=== PATIENT | male | born 1940 | race Caucasian/White ===

== ENCOUNTER 2018-05-07 08:20 | Emergency (ER) | payer MEDICARE, BC ==
[~2018-05-07] VITALS: Ht 180.3 cm; Wt 65.8 kg
[~2018-05-07 08:20] MED LIST: BACTRIM DS1 EA GT; TRAMADOL HCL50 M1 PO; Z.0.ACCUPRIL20 MG; Z.0.FLOMAX0.4 MG PO; Z.0.NORVASC2.5 MG; [UNRECOGNIZED DRUG - CODE]
[2018-05-07] MEDS ORDERED: TRIAMTERENE-HCTZ1 EA PO (08:35)
[2018-05-07] MEDS ORDERED: TURMERIC1 GM PO (08:35)
[2018-05-07] MEDS ORDERED: LISINOPRIL10 MG PO (08:35)
[2018-05-07] MEDS ORDERED: FAMOTIDINE 20 MG TAB PO ONE (09:30)
[2018-05-07] MEDS ORDERED: DIPHENHYDRAMINE HCL 25 MG CAP PO ONE (09:30)
[2018-05-07] MEDS ORDERED: PREDNISONE 20 MG TAB PO ONE (09:30)
[2018-05-07 11:34] VITALS: BP 123/78
== END 2018-05-07 11:45 | disposition home or self-care (01) ==
LOC: ER 08:20
DX: T78.3XXA Angioneurotic edema, initial encounter (principal)
CPT/HCPCS: 99284

== ENCOUNTER 2018-07-15 18:57 | Emergency (ER) | payer MEDICARE, BC ==
[~2018-07-15] VITALS: Ht 180.3 cm; Wt 65.8 kg
[~2018-07-15 18:57] MED LIST changes: +LISINOPRIL10 MG PO; +TRIAMTERENE-HCTZ1 EA PO; +TURMERIC1 GM PO
[2018-07-15] MEDS ORDERED: PENICILLIN G BENZATHINE LA 1.2 MU TBX IM STA (20:33)
--- NOTE | 2018-07-15 20:50 | Diagnostic Imaging Report ---
EXAMINATION: CHEST 2 VIEWS INDICATION: \S\sore throat COMPARISON: None FINDINGS: PA and lateral views TUBES and LINES: None. LUNGS: Lungs are well inflated. Lungs are clear. There is no evidence of pneumonia or pulmonary edema. PLEURA: No pleural effusion or pneumothorax. HEART AND MEDIASTINUM: The cardiomediastinal silhouette is unremarkable. There are atherosclerotic calcifications within the aorta. BONES AND SOFT TISSUES: No acute osseous lesion. Soft tissues are unremarkable. UPPER ABDOMEN: No free air under the diaphragm. IMPRESSION: No acute thoracic abnormality. Signed by: Dr. Romario Solano M.D. on 07/15/2018 8:47 PM
--- NOTE | 2018-07-15 20:51 | Diagnostic Imaging Report ---
NECK SOFT TISSUE - 2 views HISTORY: Pain. Sore throat COMPARISON: None available. FINDINGS: Bones: No acute displaced fracture. Osseous alignment is within normal limits. Joints: Severe degenerative changes in the cervical spine. Soft tissues: The soft tissues appear unremarkable. Normal epiglottis. Normal prevertebral soft tissue. Normal adenoids. IMPRESSION: 1. Normal soft tissue neck. 2. 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 Signed by: Dr. Romario Solano M.D. on 07/15/2018 8:47 PM
== END 2018-07-15 21:41 | disposition home or self-care (01) ==
LOC: ER 18:57
DX: J02.0 Streptococcal pharyngitis (principal); I10 Essential (primary) hypertension; G89.29 Other chronic pain
CPT/HCPCS: 70360; 71046; 83518; 99283; J0561

== ENCOUNTER 2018-07-27 23:57 | Inpatient (IN) | payer MEDICARE, BC ==
[~2018-07-27] VITALS: Ht 172.7 cm; Wt 66.3 kg
[2018-07-28 01:17] LABS: BASOPHILS # (AUTO) 0.2 (0.0-0.1); BASOPHILS % 0.7 % (0.0-1.0); EOSINOPHILS # (AUTO) 0.2 (0.0-0.4); EOSINOPHILS % 0.9 % (0.0-6.0); HEMATOCRIT 34.5 % (38.2-49.6); HEMOGLOBIN 11.7 g/dL (14.0-18.0); LYMPHOCYTES # (AUTO) 2.5 (1.0-3.2); LYMPHOCYTES % 11.7 % (18.0-39.1); MEAN CORPUSCULAR HEMOGLOBIN 33.9 pg (28-32); MEAN CORPUSCULAR HGB CONC 33.9 g/dL (31-35); MONOCYTES # (AUTO) 1.6 (0.2-0.8); MONOCYTES % 7.4 % (4.4-11.3); NEUTROPHILS # (AUTO) 16.3 (2.1-6.9); NEUTROPHILS % 76.4 % (38.7-80.0); PLATELET COUNT 261 x10e3/uL (140-360); RED BLOOD COUNT 3.45 x10e6/uL (4.3-5.7); RED CELL DISTRIBUTION WIDTH 13.1 % (11.7-14.4)
[2018-07-28 01:18] LABS: INR 0.91; PROTHROMBIN TIME 13.1 seconds (11.9-14.5)
[2018-07-28 01:19] LABS: PARTIAL THROMBOPLASTIN TIME 25.3 seconds (23.8-35.5)
[2018-07-28 01:29] LABS: ALANINE AMINOTRANSFERASE 16 IU/L (0-55); ALBUMIN 3.4 g/dL (3.5-5.0); ALBUMIN/GLOBULIN RATIO 1.4 (0.8-2.0); ALKALINE PHOSPHATASE 50 IU/L (40-150); ANION GAP 16.7 mmol/L (8-16); BLOOD UREA NITROGEN 65 mg/dL (7-26); BUN/CREATININE RATIO 59 (6-25); CALCIUM 9.5 mg/dL (8.4-10.2); CARBON DIOXIDE 24 mmol/L (22-29); CHLORIDE 106 mmol/L (98-107); CREATINE KINASE 30 IU/L (30-200); CREATININE, SERUM 1.11 mg/dL (0.72-1.25); EST GLOMERULAR FILTRATION RATE > 60 ML/MIN (60-); GLUCOSE 104 mg/dL (74-118); LIPASE 36 U/L (8-78); POTASSIUM 3.7 mmol/L (3.5-5.1); SODIUM 143 mmol/L (136-145)
[2018-07-28] MEDS ORDERED: SODIUM CHLORIDE 0.9% 1000ML 1,000 ML IV STA (01:35)
[2018-07-28] MEDS ORDERED: PANTOPRAZOLE 40 MG 10ML VIAL IV STA ×2 (01:35→01:49)
[2018-07-28 01:41] LABS: CLARITY,URINE CLEAR (CLEAR); COLOR,URINE YELLOW (YELLOW)
[2018-07-28 01:42] LABS: BILIRUBIN,URINE NEGATIVE (NEGATIVE); KETONES,URINE NEGATIVE (NEGATIVE); LEUKOCYTE ESTERASE ,URINE NEGATIVE (NEGATIVE); NITRITE,URINE NEGATIVE (NEGATIVE); PROTEIN,URINE DIPSTICK NEGATIVE (NEGATIVE); URINE UROBILINOGEN 0.2 mg/dL (0.2 - 1)
[2018-07-28] MEDS ORDERED: PANTOPRAZOLE 40 MG 10ML VIAL ONE (01:49)
[2018-07-28 01:51] LABS: BACTERIA,URINE MODERATE /HPF; EPITHELIAL CELLS,URINE RARE /LPF; RBC,URINE 0-5 /HPF (0-5)
[2018-07-28] MEDS ORDERED: DIATRIZOATE MEGL/DIATRIZOA SOD 30 ML BTL PO ONE (02:02)
[2018-07-28] MEDS ORDERED: PIPER-TAZ 3.375 GM 50 ML ONE (03:10)
[2018-07-28] MEDS ORDERED: SODIUM CHLORIDE 0.9% 50ML 50 ML ONE (03:58)
[2018-07-28] MEDS ORDERED: IOPAMIDOL 370 MG/ML 200 ML INFUS..BTL INJ ONE (03:59)
[2018-07-28] MEDS ORDERED: PIPER-TAZ 3.375 GM 50 ML IV STA (04:00)
--- NOTE | 2018-07-28 04:07 | Diagnostic Imaging Report ---
EXAM: CT Abdomen and Pelvis WITH contrast INDICATION: Abdominal pain COMPARISON: None. TECHNIQUE: Abdomen and pelvis were scanned utilizing a multidetector helical scanner from the lung base to the pubic symphysis after administration of IV contrast. Coronal and sagittal reformations were obtained. Routine protocol was performed. Scan was performed when during portal venous phase. IV CONTRAST: 100 mL of Isovue-370 ORAL CONTRAST: Water RADIATION DOSE: Total DLP: 257.63 mGy*cm Estimated effective dose: (DLP x 0.015 x size factor) mSv COMPLICATIONS: None FINDINGS: LINES and TUBES: None. LOWER THORAX: Unremarkable HEPATOBILIARY: No focal hepatic lesions. No biliary ductal dilation. GALLBLADDER: No radio-opaque stones or sludge. No wall thickening. SPLEEN: No splenomegaly. PANCREAS: No focal masses or ductal dilatation. ADRENALS: No adrenal nodules KIDNEYS/URETERS: Kidneys enhance symmetrically. No hydronephrosis. 1.4 cm stone in the inferior pole of the right kidney. 7 mm stone in the interpolar region of the left kidney. No stones. GI TRACT: No abnormal distention, wall thickening, or evidence of bowel obstruction. There are diverticula within the colon without evidence of diverticulitis. Appendix is normal. PELVIC ORGANS/BLADDER: Unremarkable. LYMPH NODES: No lymphadenopathy. VESSELS: Unremarkable. PERITONEUM / RETROPERITONEUM: No free air or fluid. BONES: Unremarkable. SOFT TISSUES: Unremarkable. IMPRESSION: 1. Bilateral nephrolithiasis. 2. Diverticulosis of the sigmoid colon without diverticulitis. Signed by: Dr. Micah Celeste M.D. on 07/28/2018 3:55 AM
[2018-07-28] MEDS ORDERED: ONDANSETRON HCL INJ 2 MG/ML VIAL IV PRN (04:15)
[2018-07-28] MEDS ORDERED: MORPHINE SULFATE 2 MG/ML SYR IV PRN (04:15)
--- NOTE | 2018-07-28 04:34 | Diagnostic Imaging Report ---
EXAMINATION: CHEST SINGLE (PORTABLE) INDICATION: Cold sweat, shortness of breath COMPARISON: 07/15/2018 FINDINGS: TUBES and LINES: None. LUNGS: Lungs are well inflated. Lungs are clear. There is no evidence of pneumonia or pulmonary edema. PLEURA: No pleural effusion or pneumothorax. HEART AND MEDIASTINUM: The cardiomediastinal silhouette is unremarkable. The aorta is ectatic with atherosclerotic calcifications. BONES AND SOFT TISSUES: No acute osseous lesion. Soft tissues are unremarkable. UPPER ABDOMEN: No free air under the diaphragm. IMPRESSION: No acute thoracic abnormality. Signed by: Dr. Micah Celeste M.D. on 07/28/2018 4:30 AM
[2018-07-28] MEDS ORDERED: AMLODIPINE BESYL5 MG PO (04:49)
[2018-07-28] MEDS: SODIUM CHLORIDE 0.9% 1000ML 1,000 ML IV SCH ×2 (05:37→12:23)
[2018-07-28 07:58] LABS: BASOPHILS # (AUTO) 0.1 (0.0-0.1); BASOPHILS % 0.4 % (0.0-1.0); EOSINOPHILS # (AUTO) 0.2 (0.0-0.4); EOSINOPHILS % 1.2 % (0.0-6.0); HEMATOCRIT 28.6 % (38.2-49.6); HEMOGLOBIN 9.8 g/dL (14.0-18.0); LYMPHOCYTES # (AUTO) 2.5 (1.0-3.2); LYMPHOCYTES % 18.2 % (18.0-39.1); MEAN CORPUSCULAR HEMOGLOBIN 34.3 pg (28-32); MEAN CORPUSCULAR HGB CONC 34.3 g/dL (31-35); MONOCYTES # (AUTO) 1.2 (0.2-0.8); MONOCYTES % 8.6 % (4.4-11.3); NEUTROPHILS # (AUTO) 9.8 (2.1-6.9); NEUTROPHILS % 70.4 % (38.7-80.0); PLATELET COUNT 230 x10e3/uL (140-360); RED BLOOD COUNT 2.86 x10e6/uL (4.3-5.7)
[2018-07-28] MEDS: PANTOPRAZOLE 40 MG 10ML VIAL IV SCH ×2 (09:06→21:31)
[2018-07-28 09:34] LABS: CREATINE KINASE MB 1.2 ng/mL (0-5.0)
[2018-07-28] MEDS ORDERED: PIPER-TAZ 3.375 GM 50 ML IV SCH (10:00)
[2018-07-28 12:00] VITALS: BP 155/73
[2018-07-28 13:15] VITALS: BP 146/67
[2018-07-28 13:17] VITALS: BP 155/73
--- OUTSIDE RECORDS SUMMARY | 2018-07-28 14:28 | XMS REPORT ---
Author Author [facility] Address Unknown Phone Unavailable Care Team Providers Care Collator Name Role Phone Amy MORA Unavailable Unavailable Katherine RAMIREZ Unavailable Unavailable Problems This patient has no known problems. Allergies, Adverse Reactions, Alerts This patient has no known allergies or adverse reactions. Medications This patient has no known medications. Results Test Description Test Time Test Comments Text Results Atomic Results Result Comments CHEST SINGLE (PORTABLE) 2018-07-28 04:30:00 [place] [address] Patient Name: ELTON BLACK MR #: [id number] : 1940 Age/Sex: 78/M Req #: [id number] Adm Physician: SONIYA MORA MD Ordered by: CY DAS MD Report #: [id number] Location: [facility] Room/Bed: [place] [address] Procedure: [id number] DX/CHEST SINGLE (PORTABLE) Exam Date: 07/28/18 Exam Time: 0200 REPORT STATUS: Signed EXAMINATION: CHEST SINGLE (PORTABLE) IN DICATION: Cold sweat, shortness of breath COMPARISON: 07/15/2018 FINDINGS: TUBES and LINES: None. LUNGS: Lungs are well inflated. Lungs are clear. There is no evidence of pneumonia or pulmonary edema. PLEURA: No pleural effusion or pneumothorax. HEART AND MEDIASTINUM: The cardiomediastinal silhouette is unremarkable. The aorta is ectatic with atherosclerotic calcifications. BONES AND SOFT TISSUES: No acute osseous lesion. Soft tissues are unremarkable. UPPER ABDOMEN: No free air under the diaphragm. IMPRESSION: No acute thoracic abnormality. Signed by: Dr. Micah Celeste M.D. on 07/28/2018 4:30 AM Dictated By: MICAH SUGGS MD 9 Transcribed By: JESSEE on 07/28/18429 COPY TO: CY DAS MD CT ABDOMEN/PELVIS W 2018-07-28 03:53:00 [place] [address] Patient Name: ELTON BLACK MR #: [id number] : 1940 Age/Sex: 78/M Req #: [id number] Adm Physician: Ordered by: CY DAS MD Report #: [id number] Location: ER Room/Bed: Procedure: [id number] CT/CT ABDOMEN/PELVIS W Exam Date: Exam Time: REPORT STATUS: Signed EXAM: CT Abdomen and Pelvis WITH contrast INDICATION: Abdominal pain COMPARISON: None. TECHNIQUE: Abdomen and pelvis were scanned utilizing a multidetector helical scanner from the lung base to the pubic symphysis after administration of IV contrast. Coronal and sagittal reformations were obtained. Routine protocol was performed. Scan was performed when during portal venous phase. IV CONTRAST: 100 mL of Isovue-370 ORAL CONTRAST: Water RADIATION DOSE: Total DLP: 257.63 mGy*cm Estimated effective dose: (DLP x 0.015 x size factor) mSv COMPLICATIONS: None FINDINGS: LINES and TUBES: None. LOWER THORAX: Unremarkable HEPATOBILIARY: No focal hepatic lesions. No biliary ductal dilation. GALLBLADDER: No radio-opaque stones or sludge. No wall thickening. SPLEEN: No splenomegaly. PANCREAS: No focal masses or ductal dilatation. ADRENALS: No adrenal nodules KIDNEYS/URETERS: Kidneys enhance symmetrically. No hydronephrosis. 1.4 cm stone in the inferior pole of the right kidney. 7 mm stone in the interpolar region of the left kidney. No stones. GI TRACT: No abnormal distention, wall thickening, or evidence of bowel obstruction. There are diverticula within the colon without evidence of diverticulitis. Appendix is normal. PELVIC ORGANS/BLADDER: Unremarkable. LYMPH NODES: No lymphadenopathy. VESSELS: Unremarkable. PERITONEUM / RETROPERITONEUM: No free air or fluid. BONES: Unremarkable. SOFT TISSUES: Unremarkable. IMPRESSION: 1. Bilateral nephrolithiasis. 2. Diverticulosis of the sigmoid colon without diverticulitis. Signed by: Dr. Micah Celeste M.D. on 07/28/2018 3:55 AM Dictated By: MICAH SUGGS MD 4 Transcribed By: JESSEE on 07/28/18354 COPY TO: CY DAS MD NECK SOFT TISSUE 2018-07-15 20:47:00 [place] [address] Patient Name: ELTON BLACK MR #: [id number] : 1940 Age/Sex: 78/M Req #: [id number] Adm Physician: Ordered by: YEN RAMIREZ MD Report #: [id number] Location: ER Room/Bed: Procedure: [id number] DX/NECK SOFT TISSUE Exam Date: 07/15/18 Exam Time: 2018 REPORT STATUS: Signed NECK SOFT TISSUE - 2 views HISTORY: Pain. Sore throat COMPARISON: None available. FINDINGS: Bones: No acute displaced fracture. Osseous alignment is within normal limits. Joints: Severe degenerative changes in the cervical spine. Soft tissues: The soft tissues appear unremarkable. Normal epiglottis. Normal prevertebral soft tissue. Normal adenoids. IMPRESSION: 1. Normal soft tissue neck. 2. 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 Signed by: Dr. Felicia Thomas M.D. on 07/15/2018 8:47 PM Dictated By: FELICIA THOMAS MD 46 Transcribed By: JESSEE on 07/15/182046 COPY TO: YEN RAMIREZ MD CHEST 2 VIEWS 2018-07-15 20:46:00 [place] [address] Patient Name: ELTON BLACK MR #: [id number] : 1940 Age/Sex: 78/M Req #: [id number] Adm Physician: Ordered by: YEN RAMIREZ MD Report #: [id number] Location: ER Room/Bed: Procedure: [id number] DX/CHEST 2 VIEWS Exam Date: 07/15/18 Exam Time: 2018 REPORT STATUS: Signed EXAMINATION: CHEST 2 VIEWS INDICATION: S sore throat COMPARISON: None FINDINGS: PA and lateral views TUBES and LINES: None. LUNGS: Lungs are well inflated. Lungs are clear. There is no evidence of pneumonia or pulmonary edema. PLEURA: No pleural effusion or pneumothorax. HEART AND MEDIASTINUM: The cardiomediastinal silhouette is unremarkable. There are atherosclerotic calcifications within the aorta. BONES AND SOFT TISSUES: No acute osseous lesion. Soft tissues are unremarkable. UPPER ABDOMEN: No free air under the diaphragm. IMPRESSION: No acute thoracic abnormality. Signed by: Dr. Felicia Thomas M.D. on 07/15/2018 8:47 PM Dictated By: FELICIA THOMAS MD 46 Transcribed By: JESSEE on 07/15/182046 COPY TO: YEN RAMIREZ MD
[2018-07-28 16:55] VITALS: BP 141/70
[2018-07-28 20:30] VITALS: BP 140/66
[2018-07-29] VITALS (7 sets, daily range): BP systolic 120–147; BP diastolic 65–78
[2018-07-29] MEDS: TRAMADOL HCL 50 MG TAB PO PRN ×3 (00:50→21:50)
[2018-07-29 05:09] LABS: BASOPHILS # (AUTO) 0.1 (0.0-0.1); BASOPHILS % 0.6 % (0.0-1.0); EOSINOPHILS # (AUTO) 0.2 (0.0-0.4); EOSINOPHILS % 1.9 % (0.0-6.0); HEMATOCRIT 25.1 % (38.2-49.6); HEMOGLOBIN 8.5 g/dL (14.0-18.0); LYMPHOCYTES # (AUTO) 2.1 (1.0-3.2); LYMPHOCYTES % 17.7 % (18.0-39.1); MEAN CORPUSCULAR HEMOGLOBIN 33.6 pg (28-32); MEAN CORPUSCULAR HGB CONC 33.9 g/dL (31-35); MEAN CORPUSCULAR VOLUME 99.2 fL (81-99); MONOCYTES # (AUTO) 1.1 (0.2-0.8); MONOCYTES % 8.9 % (4.4-11.3); NEUTROPHILS # (AUTO) 8.3 (2.1-6.9); NEUTROPHILS % 70.1 % (38.7-80.0); PLATELET COUNT 203 x10e3/uL (140-360); RED BLOOD COUNT 2.53 x10e6/uL (4.3-5.7); RED CELL DISTRIBUTION WIDTH 13.2 % (11.7-14.4)
[2018-07-29 05:28] LABS: ANION GAP 14.2 mmol/L (8-16); BLOOD UREA NITROGEN 37 mg/dL (7-26); BUN/CREATININE RATIO 39 (6-25); CALCIUM 8.6 mg/dL (8.4-10.2); CARBON DIOXIDE 20 mmol/L (22-29); CHLORIDE 108 mmol/L (98-107); CREATININE, SERUM 0.95 mg/dL (0.72-1.25); EST GLOMERULAR FILTRATION RATE > 60 ML/MIN (60-); GLUCOSE 106 mg/dL (74-118); POTASSIUM 3.2 mmol/L (3.5-5.1); SODIUM 139 mmol/L (136-145)
[2018-07-29] MEDS: PANTOPRAZOLE 40 MG 10ML VIAL IV SCH ×2 (09:33→20:38)
[2018-07-29] MEDS: SODIUM CHLORIDE 0.9% 1000ML 1,000 ML IV SCH (09:34)
[2018-07-29] MEDS ORDERED: POTASSIUM CHLORIDE 20 MEQ TAB CR PO ONE (10:00)
--- NOTE | 2018-07-29 16:24 | Operative Report ---
DATE OF PROCEDURE: July 29, 2018 REFERRING PHYSICIAN: Dr. Mora. PROCEDURE PERFORMED: Esophagogastroduodenoscopy with biopsies. INDICATIONS FOR PROCEDURE: History of melena, anemia. MEDICATION: Patient was done under MAC. Please see anesthesiologist's note. PROCEDURE: With the patient in the left lateral decubitus position, the flexible fiberoptic Olympus gastroscope was introduced into the esophagus under direct visualization without any difficulty. There was some patchy erythema noted in the distal esophagus. The scope was then advanced with ease into the stomach, traversing a small sliding hiatal hernia. Mucosa overlying the antrum and the body revealed some patchy erythema and low-grade to moderate edema, and biopsies were obtained and sent to stain for H. pylori. The pylorus was of normal contour and shape, was intubated with ease, and the scope was advanced all the way to the 2nd portion of the duodenum. The scope was then withdrawn slowly. Mucosa overlying the proximal 2nd portion and the duodenal bulb appeared to be within normal limits. The scope was then withdrawn back into the stomach and retroflexed, and the mucosa overlying the fundus and the cardia appeared to be within normal limits. The scope was then straightened out. It was subsequently withdrawn. Patient tolerated procedure well. IMPRESSION: 1. Mild distal esophagitis. 2. Small sliding hiatal hernia. 3. Gastritis biopsied. Biopsies sent to stain for H. pylori. PLAN: Follow up histology. Continue Protonix 40 mg 1 p.o. q.a.m. a.c. Findings obviously do not explain patient's anemia, neither his melena. A colonoscopy would be in order and, if negative, then also a small-bowel series will need to be done. Job#: [id number] EV cc:SONIYA MORA M.D.
[2018-07-29] MEDS ORDERED: PROPOFOL IV EMULSION 10 MG/ML 50 ML VIAL ONE (17:18)
[2018-07-29] MEDS ORDERED: PEG (High)/E-LYTE SOLN 4,000 ML BTL PO ONE (22:30)
[2018-07-30] VITALS (7 sets, daily range): BP systolic 98–157; BP diastolic 59–95
[2018-07-30] MEDS: SODIUM CHLORIDE 0.9% 1000ML 1,000 ML IV SCH ×2 (04:22→20:55)
[2018-07-30 06:43] LABS: BASOPHILS # (AUTO) 0.1 (0.0-0.1); BASOPHILS % 0.7 % (0.0-1.0); EOSINOPHILS # (AUTO) 0.4 (0.0-0.4); EOSINOPHILS % 2.9 % (0.0-6.0); HEMATOCRIT 24.9 % (38.2-49.6); HEMOGLOBIN 8.3 g/dL (14.0-18.0); LYMPHOCYTES # (AUTO) 2.4 (1.0-3.2); LYMPHOCYTES % 19.8 % (18.0-39.1); MEAN CORPUSCULAR HEMOGLOBIN 33.6 pg (28-32); MEAN CORPUSCULAR HGB CONC 33.3 g/dL (31-35); MEAN CORPUSCULAR VOLUME 100.8 fL (81-99); MONOCYTES # (AUTO) 1.2 (0.2-0.8); MONOCYTES % 9.8 % (4.4-11.3); NEUTROPHILS # (AUTO) 8.1 (2.1-6.9); NEUTROPHILS % 66.1 % (38.7-80.0); PLATELET COUNT 235 x10e3/uL (140-360); RED BLOOD COUNT 2.47 x10e6/uL (4.3-5.7); RED CELL DISTRIBUTION WIDTH 13.1 % (11.7-14.4)
[2018-07-30 07:08] LABS: ANION GAP 13.4 mmol/L (8-16); BLOOD UREA NITROGEN 25 mg/dL (7-26); BUN/CREATININE RATIO 30 (6-25); CALCIUM 9.1 mg/dL (8.4-10.2); CARBON DIOXIDE 23 mmol/L (22-29); CHLORIDE 104 mmol/L (98-107); CREATININE, SERUM 0.84 mg/dL (0.72-1.25); EST GLOMERULAR FILTRATION RATE > 60 ML/MIN (60-); GLUCOSE 107 mg/dL (74-118); POTASSIUM 3.4 mmol/L (3.5-5.1); SODIUM 137 mmol/L (136-145)
[2018-07-30] MEDS: PANTOPRAZOLE 40 MG 10ML VIAL IV SCH (08:53)
[2018-07-30] MEDS: TRAMADOL HCL 50 MG TAB PO PRN ×2 (09:30→20:55)
[2018-07-30] MEDS ORDERED: POTASSIUM CHLORIDE 20 MEQ TAB CR PO STA (11:04)
--- NOTE | 2018-07-30 17:40 | Operative Report ---
DATE OF PROCEDURE: July 30, 2018 REFERRING PHYSICIAN: Dr. Fly Mora. PROCEDURE PERFORMED: Colonoscopy. INDICATIONS FOR COLONOSCOPY: Anemia, history of melena. EGD findings were unremarkable. MEDICATION: Patient was done under MAC. Please see anesthesiologist's note. PROCEDURE: With the patient in the left lateral decubitus position, the flexible fiberoptic Olympus colonoscope was inserted into the rectum with ease and advanced all the way to the cecum. Diverticular disease was noted pretty much throughout. There were some retained stools in the colon, but visualization was fair. The scope was then withdrawn slowly, and other than for diverticular disease the colon was unremarkable. The scope was then retroflexed into the distal rectum and moderate-sized internal hemorrhoids were noted, none of which was actively bleeding. The scope was then straightened out. It was subsequently withdrawn. Patient tolerated the procedure well. IMPRESSION: 1. Diverticulosis. 2. Internal hemorrhoids, none actively bleeding. PLAN: Follow H&H. Will need a small-bowel series, can be done on an outpatient basis. Job#: [id number] EV cc:FLY MORA M.D.
[2018-07-30] MEDS ORDERED: MIDAZOLAM HCL 2 MG/2 ML VIAL ONE (17:43)
[2018-07-30] MEDS ORDERED: PROPOFOL IV EMULSION 10 MG/ML 50 ML VIAL ONE (19:35)
[2018-07-30] MEDS ORDERED: LIDOCAINE HCL 2% LOCAL INJ 5 ML SDV VIAL INJ ONE (19:35)
[2018-07-31] VITALS: BP 101/55
[2018-07-31] MEDS: SODIUM CHLORIDE 0.9% 1000ML 1,000 ML IV SCH (00:22)
[2018-07-31 04:00] VITALS: BP 116/73
[2018-07-31] MEDS ORDERED: PANTOPRAZOLE SOD 40 MG TABEC PO SCH (07:30)
[2018-07-31 08:00] VITALS: BP 110/70
[2018-07-31 12:00] VITALS: BP 113/63
[2018-07-31] MEDS ORDERED: ULTRAM50 MG PO (13:36)
[2018-07-31] MEDS ORDERED: PANTOPRAZOLE SO40 MG PO (13:36)
--- NOTE | 2018-07-31 16:32 | Discharge Summary ---
PRIMARY CARE DOCTOR: Dr. Reji Arciniega. FINAL DIAGNOSIS: Acute blood loss anemia due to gastrointestinal bleed. SECONDARY DIAGNOSES 1. Known asymptomatic kidney stones with 1 large one. 2. Diverticulosis without diverticulitis. 3. Chronic hip pain. CONSULTANTS: Dr. Sharif, GI. PROCEDURES/STUDIES PERFORMED 1. Computed tomography of the abdomen and pelvis. 2. Esophagogastroduodenoscopy. 3. Colonoscopy. HISTORY: Per H&P. HOSPITAL COURSE: Patient was admitted. Initially thought to have diverticulitis. Empiric Zosyn was started. However, CT shows only diverticulosis and not diverticulitis. Therefore, Zosyn was stopped. Patient will be prescribed tramadol for his chronic hip pain. Patient's hemoglobin went down to 8.3, and it is stable. Patient is asymptomatic at this time. EGD was done, which showed mild distal esophagitis and also gastritis. However, this does not explain his melena. Therefore, a colonoscopy was done which only showed diverticulosis and internal hemorrhoids. At this time patient will be discharged home and follow up with Dr. Sharif as an outpatient. He will need an outpatient small-bowel followthrough. Protonix was prescribed as well. Patient was told to avoid NSAIDs. Patient was seen and evaluated today. It took 32 minutes total to discharge this patient. CONDITION ON DISCHARGE: Stable. DISCHARGE MEDICATIONS: Please see medication reconciliation form. SONIYA MORA M.D. Job#: [id number] EV cc:REJI ARCINIEGA MD
== END 2018-07-31 14:12 | disposition home or self-care (01) | DRG 378 ==
LOC: ER 23:57 → ERHOLD 07-28 04:26 → MED/SURG2 07-28 11:26
PROVIDERS: ADMIT Internal Medicine; ATTEND Internal Medicine
PROC: 0DB78ZX Excision of Stomach, Pylorus, Via Natural or Artificial Opening Endoscopic, Diagnostic (ICD-10-PCS; 2018-07-29)
PROC: BD47ZZZ Ultrasonography of Gastrointestinal Tract (ICD-10-PCS; 2018-07-29)
PROC: 0DJD8ZZ Inspection of Lower Intestinal Tract, Via Natural or Artificial Opening Endoscopic (ICD-10-PCS; principal; 2018-07-29 18:30)
DX: K57.31 Diverticulosis of large intestine without perforation or abscess with bleeding (principal); D62 Acute posthemorrhagic anemia; R00.0 Tachycardia, unspecified; K44.9 Diaphragmatic hernia without obstruction or gangrene; K20.9 Esophagitis, unspecified; K29.70 Gastritis, unspecified, without bleeding; B96.81 Helicobacter pylori [H. pylori] as the cause of diseases classified elsewhere; K64.8 Other hemorrhoids; N20.0 Calculus of kidney; M25.559 Pain in unspecified hip; E87.6 Hypokalemia
CPT/HCPCS: 36415; 43239; 45378; 71045; 74177; 80048; 80053; 81001; 82550; 82553; 83605; 83690; 83735; 84484; 85025; 85610; 85730; 86850; 86900; 87040; 87086; 88305; 88312; 93005; 99284; J2001; J2250; J2270; J2405; J2543; J7030; Q9967

== ENCOUNTER → 2018-08-24 | Outpatient (CLI) | payer MEDICARE, BC ==
[~2018-08-24] MED LIST changes: +AMLODIPINE BESYL5 MG PO; +PANTOPRAZOLE SO40 MG PO; +ULTRAM50 MG PO
--- NOTE | 2018-08-24 13:54 | Diagnostic Imaging Report ---
SMALL BOWEL SERIES FORESTRY HUNTER(S): Leatha Varela MD Comparison: None. Procedure: Small bowel follow through exam was performed using oral barium. Preliminary image was obtained before administration of contrast and serial overhead images were obtained after administration of oral barium. Fluoroscopy was performed and spot images were obtained. DISCUSSION: SWEET POTATO DISINTEGRATOR: The bowel gas pattern is non-obstructive. STOMACH: Unremarkable mucosal pattern. SMALL BOWEL: Bulb and sweep are normal. Duodenal-jejunal junction is in the normal expected position. Small bowel loops are normal in caliber and distribution. There is no evidence of fistula, mucosal changes, stricture or dilation. The transit time was within normal limits. COLON: Partially visualized proximal colon is unremarkable. Radiation Dose: Total dose 46.7 mGy Dose area product (DAP): 8.45 Gycm2 IMPRESSION: Unremarkable fluoroscopic small bowel series. Signed by: Dr. Leatha Varela MD on 08/24/2018 1:51 PM
== END ==
LOC: DX 09:35
PROVIDERS: ATTEND Internal Medicine Gastroenterology
DX: D64.9 Anemia, unspecified (principal)
CPT/HCPCS: 74250

== ENCOUNTER 2022-06-03 19:49 | Inpatient (IN) | payer MEDICARE, BC ==
[~2022-06-03] VITALS: Ht 180.3 cm; Wt 55.5 kg
[2022-06-03] MEDS ORDERED: SODIUM CHLORIDE 0.9% 250ML 250 ML IV ONE (20:15)
[2022-06-03] MEDS ORDERED: HYDRALAZINE HCL 20 MG/ML VIAL IV PRN (20:30)
[2022-06-03] MEDS ORDERED: ACETAMINOPHEN 325 MG TAB PO PRN (20:30)
[2022-06-03] MEDS ORDERED: ONDANSETRON HCL INJ 2MG/ML 2ML 2 MG/ML VIAL IV PRN (20:30)
[2022-06-03 20:46] VITALS: BP 134/77
[2022-06-03 21:00] VITALS: BP 134/77
[2022-06-03 21:21] VITALS: BP 134/77
[2022-06-03] MEDS: TRAMADOL HCL 50 MG TAB PO PRN (21:29)
[2022-06-03] MEDS ORDERED: METOPROLOL TARTRATE INJ 1 MG/ML VIAL IV PRN (21:30)
[2022-06-03 21:44] LABS: BASOPHILS % 0.3 % (0.0-1.0); EOSINOPHILS # (AUTO) 0.1 (0.0-0.4); EOSINOPHILS % 0.8 % (0.0-6.0); LYMPHOCYTES # (AUTO) 1.3 (1.0-3.2); LYMPHOCYTES % 10.1 % (18.0-39.1); MEAN CORPUSCULAR HEMOGLOBIN 33.3 pg (28-32); MEAN CORPUSCULAR HGB CONC 31.4 g/dL (31-35); MEAN CORPUSCULAR VOLUME 106.1 fL (81-99); MONOCYTES # (AUTO) 0.8 (0.2-0.8); MONOCYTES % 6.4 % (4.4-11.3); NEUTROPHILS # (AUTO) 10.5 (2.1-6.9); NEUTROPHILS % 81.7 % (38.7-80.0); PLATELET COUNT 242 x10e3/uL (140-360); RED BLOOD COUNT 1.47 x10e6/uL (4.3-5.7); RED CELL DISTRIBUTION WIDTH 15.7 % (11.7-14.4)
[2022-06-03 21:55] LABS: ANION GAP 11.3 mmol/L (8-16); POTASSIUM 4.3 mmol/L (3.5-5.1)
[2022-06-03 22:06] LABS: HEMATOCRIT 15.6 % (38.2-49.6); HEMOGLOBIN 4.9 g/dL (14.0-18.0)
[2022-06-03] MEDS ORDERED: SODIUM CHLORIDE 0.9% 250ML 250 ML ONE (23:24)
[2022-06-04] VITALS (8 sets, daily range): BP systolic 150–171; BP diastolic 74–98
[2022-06-04] MEDS: MELATONIN 5 MG TABLET PO SCH ×2 (00:35→20:18)
[2022-06-04] MEDS ORDERED: FEROSUL325 MG PO (05:35)
[2022-06-04] MEDS ORDERED: tamsulosin PO (05:35)
[2022-06-04] MEDS ORDERED: FINASTERIDE5 MG PO (05:35)
[2022-06-04] MEDS ORDERED: EMERGEN-C 1,01000 MG (05:35)
[2022-06-04] MEDS ORDERED: VITAMIN D3250 MC1 (05:35)
[2022-06-04 08:28] LABS: BASOPHILS # (AUTO) 0.1 (0.0-0.1); BASOPHILS % 0.5 % (0.0-1.0); EOSINOPHILS # (AUTO) 0.2 (0.0-0.4); HEMATOCRIT 23.9 % (38.2-49.6); HEMOGLOBIN 7.7 g/dL (14.0-18.0); LYMPHOCYTES # (AUTO) 1.7 (1.0-3.2); MEAN CORPUSCULAR HGB CONC 32.2 g/dL (31-35); MEAN CORPUSCULAR VOLUME 96.4 fL (81-99); MONOCYTES # (AUTO) 0.6 (0.2-0.8); MONOCYTES % 5.7 % (4.4-11.3); NEUTROPHILS # (AUTO) 7.8 (2.1-6.9); NEUTROPHILS % 74.6 % (38.7-80.0); PLATELET COUNT 221 x10e3/uL (140-360); RED BLOOD COUNT 2.48 x10e6/uL (4.3-5.7); RED CELL DISTRIBUTION WIDTH 17.9 % (11.7-14.4)
[2022-06-04 08:42] LABS: CALCIUM 8.3 mg/dL (8.4-10.2); CHOL/HDL RATIO 3.5 (3.9-4.7)
[2022-06-04] MEDS ORDERED: HEPARIN SOD (PORCINE) 1000 UNIT/ML SDV ONE (10:03)
[2022-06-04] MEDS: IRON SUCROSE 100 MG in SODIUM CHLORIDE 0.9% 100 ML IV SCH (10:10)
[2022-06-04] MEDS: TRAMADOL HCL 50 MG TAB PO PRN (10:53)
[2022-06-04] MEDS ORDERED: Morphine 2mg Syringe 2 MG/ML SYR IV ONE ×2 (11:45→12:00)
[2022-06-04] MEDS: NICOTINE 21 MG/EA PATCH TOP SCH (22:45)
[2022-06-04] MEDS: Morphine 2mg Syringe 2 MG/ML SYR IV PRN (22:52)
[2022-06-05] VITALS: BP 139/76
[2022-06-05] MEDS: TRAMADOL HCL 50 MG TAB PO PRN (00:42)
[2022-06-05 04:00] VITALS: BP 161/76
[2022-06-05] MEDS: Morphine 2mg Syringe 2 MG/ML SYR IV PRN ×3 (05:54→18:27)
[2022-06-05 06:27] LABS: ALBUMIN 2.4 g/dL (3.5-5.0); ALBUMIN/GLOBULIN RATIO 1.3 (0.8-2.0); ANION GAP 10.1 mmol/L (8-16); CHOL/HDL RATIO 3.4 (3.9-4.7); CREATININE, SERUM 0.9 mg/dL (0.72-1.25); POTASSIUM 4.1 mmol/L (3.5-5.1)
[2022-06-05 06:47] LABS: THYROID STIMULATING HORMONE 1.623 uIU/mL (0.350-4.940)
[2022-06-05 07:01] LABS: BASOPHILS # (AUTO) 0.1 (0.0-0.1); BASOPHILS % 0.6 % (0.0-1.0); EOSINOPHILS # (AUTO) 0.3 (0.0-0.4); EOSINOPHILS % 2.7 % (0.0-6.0); LYMPHOCYTES # (AUTO) 1.5 (1.0-3.2); LYMPHOCYTES % 14.3 % (18.0-39.1); MEAN CORPUSCULAR HEMOGLOBIN 31.5 pg (28-32); MEAN CORPUSCULAR HGB CONC 33.2 g/dL (31-35); MEAN CORPUSCULAR VOLUME 94.9 fL (81-99); NEUTROPHILS # (AUTO) 7.2 (2.1-6.9); NEUTROPHILS % 71.1 % (38.7-80.0); PLATELET COUNT 215 x10e3/uL (140-360); RED BLOOD COUNT 2.16 x10e6/uL (4.3-5.7); RED CELL DISTRIBUTION WIDTH 19.4 % (11.7-14.4)
[2022-06-05 07:06] LABS: HEMATOCRIT 20.5 % (38.2-49.6); HEMOGLOBIN 6.8 g/dL (14.0-18.0)
[2022-06-05 08:00] VITALS: BP 161/76
[2022-06-05] MEDS ORDERED: SODIUM CHLORIDE 0.9% 250ML 250 ML IV ONE (08:00)
[2022-06-05] MEDS: BISACODYL 5 MG TAB EC PO SCH ×2 (08:00→13:00)
[2022-06-05 08:30] VITALS: BP 158/77
[2022-06-05] MEDS: NICOTINE 21 MG/EA PATCH TOP SCH (09:37)
[2022-06-05] MEDS: IRON SUCROSE 100 MG in SODIUM CHLORIDE 0.9% 100 ML IV SCH (09:37)
[2022-06-05] MEDS: BISACODYL 5 MG TAB EC PO ONE ×5 (09:47→13:00)
[2022-06-05] MEDS ORDERED: PEG (High)/E-LYTE SOLN 4,000 ML BTL PO ONE (10:00)
[2022-06-05 11:59] VITALS: BP 156/71
[2022-06-05] MEDS: ONDANSETRON HCL 4 MG ORAL DISINTEGRATING TAB PO PRN ×2 (17:57→23:31)
[2022-06-05] MEDS ORDERED: SODIUM CHLORIDE 0.9% 250ML 250 ML ONE (19:52)
[2022-06-05 20:00] VITALS: BP 148/71
[2022-06-05] MEDS: MELATONIN 5 MG TABLET PO SCH (20:33)
[2022-06-05] MEDS ORDERED: HYDRALAZINE HCL 20 MG/ML VIAL IV PRN (21:45)
[2022-06-05] MEDS ORDERED: BISACODYL 5 MG TAB EC PO ONE (23:00)
[2022-06-06] VITALS (9 sets, daily range): BP systolic 139–177; BP diastolic 77–89
[2022-06-06] MEDS: Morphine 2mg Syringe 2 MG/ML SYR IV PRN ×4 (00:04→22:42)
[2022-06-06] MEDS ORDERED: BISACODYL 5 MG TAB EC PO ONE ×3 (01:00→12:30)
[2022-06-06] MEDS: TRAMADOL HCL 50 MG TAB PO PRN ×2 (04:05→20:07)
[2022-06-06] MEDS: ONDANSETRON HCL 4 MG ORAL DISINTEGRATING TAB PO PRN (04:05)
[2022-06-06 04:58] LABS: BASOPHILS # (AUTO) 0.1 (0.0-0.1); BASOPHILS % 0.6 % (0.0-1.0); EOSINOPHILS # (AUTO) 0.4 (0.0-0.4); HEMATOCRIT 26.9 % (38.2-49.6); HEMOGLOBIN 8.9 g/dL (14.0-18.0); LYMPHOCYTES # (AUTO) 1.5 (1.0-3.2); LYMPHOCYTES % 12.2 % (18.0-39.1); MEAN CORPUSCULAR HEMOGLOBIN 30.3 pg (28-32); MEAN CORPUSCULAR HGB CONC 33.1 g/dL (31-35); MEAN CORPUSCULAR VOLUME 91.5 fL (81-99); MONOCYTES # (AUTO) 1.1 (0.2-0.8); MONOCYTES % 9.3 % (4.4-11.3); NEUTROPHILS % 73.8 % (38.7-80.0); PLATELET COUNT 235 x10e3/uL (140-360); RED BLOOD COUNT 2.94 x10e6/uL (4.3-5.7); RED CELL DISTRIBUTION WIDTH 20.3 % (11.7-14.4)
[2022-06-06] MEDS: FINASTERIDE 5 MG TAB PO SCH (09:11)
[2022-06-06] MEDS: AMLODIPINE BESYLATE 5 MG TAB PO SCH (09:11)
[2022-06-06] MEDS: NICOTINE 21 MG/EA PATCH TOP SCH (09:11)
[2022-06-06] MEDS: IRON SUCROSE 100 MG in SODIUM CHLORIDE 0.9% 100 ML IV SCH (09:15)
[2022-06-06] MEDS ORDERED: IOPAMIDOL 370 MG/ML 100 ML INFUS..BTL INJ ONE (16:30)
[2022-06-06] MEDS: MELATONIN 5 MG TABLET PO SCH (20:06)
[2022-06-07] VITALS (8 sets, daily range): BP systolic 129–158; BP diastolic 74–88
[2022-06-07] MEDS: Morphine 2mg Syringe 2 MG/ML SYR IV PRN ×3 (02:10→19:20)
[2022-06-07] MEDS: TRAMADOL HCL 50 MG TAB PO PRN ×2 (04:42→21:13)
[2022-06-07 05:52] LABS: BASOPHILS % 0.4 % (0.0-1.0); EOSINOPHILS # (AUTO) 0.3 (0.0-0.4); EOSINOPHILS % 3.3 % (0.0-6.0); HEMATOCRIT 27.4 % (38.2-49.6); HEMOGLOBIN 8.8 g/dL (14.0-18.0); LYMPHOCYTES # (AUTO) 1.2 (1.0-3.2); LYMPHOCYTES % 11.6 % (18.0-39.1); MEAN CORPUSCULAR HEMOGLOBIN 30.4 pg (28-32); MEAN CORPUSCULAR HGB CONC 32.1 g/dL (31-35); MEAN CORPUSCULAR VOLUME 94.8 fL (81-99); MONOCYTES # (AUTO) 1.1 (0.2-0.8); MONOCYTES % 10.8 % (4.4-11.3); NEUTROPHILS # (AUTO) 7.3 (2.1-6.9); NEUTROPHILS % 73.5 % (38.7-80.0); PLATELET COUNT 251 x10e3/uL (140-360); RED BLOOD COUNT 2.89 x10e6/uL (4.3-5.7); RED CELL DISTRIBUTION WIDTH 19.9 % (11.7-14.4)
[2022-06-07] MEDS: AMLODIPINE BESYLATE 5 MG TAB PO SCH (08:16)
[2022-06-07] MEDS: FINASTERIDE 5 MG TAB PO SCH (08:16)
[2022-06-07] MEDS: NICOTINE 21 MG/EA PATCH TOP SCH ×2 (09:00→09:20)
[2022-06-07] MEDS: IRON SUCROSE 100 MG in SODIUM CHLORIDE 0.9% 100 ML IV SCH (09:20)
[2022-06-07] MEDS: SODIUM CHLORIDE 0.9% 1000ML 1,000 ML IV SCH (11:15)
[2022-06-07] MEDS ORDERED: POVIDONE IODINE 0.05% 0.05 % ML PO ONE (13:12)
[2022-06-07] MEDS ORDERED: ATROPINE SULFATE 1 MG/ML VIAL ONE (13:12)
[2022-06-07] MEDS ORDERED: PROPOFOL IV EMULSION 10 MG/ML 20 ML VIAL ONE (13:12)
[2022-06-07] MEDS: MELATONIN 5 MG TABLET PO SCH (21:12)
[2022-06-08 00:21] VITALS: BP 150/80
[2022-06-08] MEDS: Morphine 2mg Syringe 2 MG/ML SYR IV PRN ×2 (02:29→06:27)
[2022-06-08] MEDS: TRAMADOL HCL 50 MG TAB PO PRN (04:54)
[2022-06-08 05:25] VITALS: BP 152/82
[2022-06-08] MEDS: SODIUM CHLORIDE 0.9% 1000ML 1,000 ML IV SCH (07:00)
[2022-06-08 07:11] LABS: HEMATOCRIT 26.5 % (38.2-49.6); HEMOGLOBIN 8.4 g/dL (14.0-18.0)
[2022-06-08 08:02] VITALS: BP 139/85
[2022-06-08] MEDS: FINASTERIDE 5 MG TAB PO SCH (09:17)
[2022-06-08] MEDS: NICOTINE 21 MG/EA PATCH TOP SCH (09:17)
[2022-06-08] MEDS: AMLODIPINE BESYLATE 5 MG TAB PO SCH (09:18)
[2022-06-08] MEDS: IRON SUCROSE 100 MG in SODIUM CHLORIDE 0.9% 100 ML IV SCH (09:18)
[2022-06-08] MEDS ORDERED: CARVEDILOL 3.125 MG TAB PO SCH (10:15)
[2022-06-08 11:57] VITALS: BP 128/72
== END 2022-06-08 13:19 | disposition home or self-care (01) | DRG 378 ==
LOC: MED/SURG2 20:13
PROVIDERS: ADMIT Internal Medicine; ATTEND Internal Medicine
PROC: 30233N1 Transfusion of Nonautologous Red Blood Cells into Peripheral Vein, Percutaneous Approach (ICD-10-PCS; 2022-06-03)
PROC: 0DJD8ZZ Inspection of Lower Intestinal Tract, Via Natural or Artificial Opening Endoscopic (ICD-10-PCS; principal; 2022-06-07 17:01)
DX: K57.31 Diverticulosis of large intestine without perforation or abscess with bleeding (principal); D62 Acute posthemorrhagic anemia; I71.2 Thoracic aortic aneurysm, without rupture; K64.8 Other hemorrhoids; I10 Essential (primary) hypertension; Z74.09 Other reduced mobility; R29.6 Repeated falls; H91.90 Unspecified hearing loss, unspecified ear; Z79.1 Long term (current) use of non-steroidal anti-inflammatories (NSAID); R01.1 Cardiac murmur, unspecified; K59.00 Constipation, unspecified; N40.0 Benign prostatic hyperplasia without lower urinary tract symptoms; D50.9 Iron deficiency anemia, unspecified; Z20.822 Contact with and (suspected) exposure to COVID-19
CPT/HCPCS: 0223U; 36415; 45378; 71275; 74174; 78278; 80048; 80053; 80061; 82607; 82746; 83540; 83735; 84443; 84466; 84484; 85014; 85018; 85025; 86850; 86900; 86920; 93005; 93306; 96361; A9512; J0461; J1644; J1756; J2270; J7030; J7050; P9016; Q0162; Q9967